=== PATIENT | female | born 1995 | race African-American/Black ===

== ENCOUNTER 2022-12-15 12:26 | Emergency (ER) | payer MEDICAID ==
[~2022-12-15] VITALS: Ht 165.1 cm; Wt 91.0 kg
[2022-12-15 12:38] VITALS: O2SAT 100
[2022-12-15 14:17] VITALS: BP 112/71; PULSE 99; RESP 18; TEMP 98.4
== END 2022-12-15 14:20 | disposition home or self-care (01) ==
LOC: ER 12:53
DX: Z48.02 Encounter for removal of sutures (principal)
CPT/HCPCS: 99282